=== PATIENT | female | born 1995 | race Two or more races ===

== ENCOUNTER 2024-11-19 16:47 | Emergency (ER) | payer MEDICAID, SELFPAY ==
[2024-11-19 16:59] VITALS: BP 146/87; PULSE 77; RESP 18; TEMP 36.8; O2SAT 99; BMI 27.4
--- NOTE | 2024-11-19 17:06 | XR_ITS ---
Examination: OB Transvaginal ultrasound of the pelvis, complete Technique: Transvaginal sonographic images pelvis performed using tanner scale imaging Exam date and time: Onset pelvic pain today FINDINGS: Uterus 9.1 cm endometrial stripe 1.4 cm No uterine mass or intrauterine gestation Right ovary 3.2 cm arterial flow Left ovary 3.3 cm arterial flow IMPRESSION: No intrauterine gestation or uterine Mass. No findings of ectopic Suggest continued follow-up as clinically warranted.
--- NOTE | 2024-11-19 17:07 | PD.EDRME ---
Rapid Medical Screening Exam RME Arrival date/time: 11/19/24 16:47 29-year-old female presents to the emergency department stating that she has left-sided pelvic pain patient reports she had an outpatient ultrasound today and she was told she had ectopic Chief Complaint: OB/Uterine Contractions Time Seen by Provider: 11/19/24 16:57 Vital signs: Vital Signs Temperature 98.3 F 11/19/24 16:59 Pulse Rate 77 11/19/24 16:59 Respiratory Rate 18 11/19/24 16:59 Blood Pressure 146/87 H 11/19/24 16:59 Pulse Oximetry (%) 99 11/19/24 16:59 Oxygen Delivery Method Room Air 11/19/24 16:59
[2024-11-19 17:40] LABS: Basophils # (Auto) 0.1 Thou/mm3 (0.0-0.2); Basophils % (Auto) 1 % (0-2.5); Eosinophils # (Auto) 0.2 Thou/mm3 (0.0-0.5); Eosinophils % (Auto) 2 % (0-10); Hematocrit 39.6 % (36.0-46.0); Hemoglobin 13.4 g/dL (12.0-16.0); Immature Granulocytes % (Auto) 0 % (0-0); Immature Granulocytes Auto 0.02 Thou/mm3 (0.00-0.00); Lymphocytes # (Auto) 2.7 Thou/mm3 (1.0-4.8); Lymphocytes % (Auto) 29 % (10-50); Mean Corpuscular HGB Conc 33.8 g/dl (31.0-37.0); Mean Corpuscular Hemoglobin 28.4 pg (25.0-35.0); Mean Corpuscular Volume 84 fL (80-100); Monocytes # (Auto) 0.9 Thou/mm3 (0.0-0.8); Monocytes % (Auto) 10 % (0-12); Neutrophils # (Auto) 5.5 Thou/mm3 (1.8-7.7); Neutrophils % (Auto) 59 % (37-80); Nucleated Red Blood Cell % 0 /100 WBC (0); Platelet Count 433 Thou/mm3 (140-440); RDW Standard Deviation 43.6 fL (36.4-46.3); Red Blood Count 4.72 Miln/mm3 (4.00-5.20); White Blood Count 9.3 Thou/mm3 (3.6-11.0)
[2024-11-19 17:57] LABS: Collection Type, Urine Clean Catch
[2024-11-19 18:16] LABS: Bilirubin,Urine Negative (Negative); Blood,Urine Negative (Negative); Clarity,Urine Clear (Clear/Hazy); Color,Urine Yellow (Lt Yel-Yel); Glucose, Urine Negative (Negative); Ketones,Urine Negative (Negative); Leukocyte Esterase,Urine Negative (Negative); Nitrite,Urine Negative (Negative); Protein,Urine Trace (Neg - Trace); RBC,Urine 5 /hpf (0-3); Specific Gravity,Urine 1.027 (1.001-1.035); Squamous Epithelial Cell,Urine 4 /hpf (0-5); Urobilinogen,Urine Negative mg/dL (0.0-1.0); WBC,Urine 1 /hpf (0-5)
[2024-11-19 18:17] LABS: Alanine Aminotransferase 46 U/L (10-49); Albumin, Serum 4.4 gm/dL (3.5-5.0); Albumin/Globulin Ratio 1.4 (1.2-2.2); Alkaline Phosphatase 56 U/L (46-116); Anion Gap 10 (7-16); Aspartate Amino Transferase 23 U/L (0-34); BUN/Creatinine Ratio 17 Ratio (12-20); Beta HCG,Quantitative 1021 mIU/mL (<5.0); Bilirubin,Total 0.6 mg/dL (0.3-1.2); Blood Urea Nitrogen 15 mg/dL (9-23); Calcium 8.5 mg/dL (8.3-10.6); Calcium (Corrected) 8.5 mg/dL (8.5-10.1); Carbon Dioxide 23.9 mMol/L (20.0-31.0); Chloride 105 mMol/L (98-107); Creatinine (Component) 0.9 mg/dL (0.6-1.3); Estimated Creatinine Clearance 94.2 mL/min (>60); Globulin 3.2 gm/dL (2.3-3.5); Glucose 89 mg/dL (74-106); Osmolality,Calculated 277 (275-295); Potassium 4.1 mMol/L (3.4-5.1); Sodium 139 mMol/L (136-145); Total Protein 7.6 gm/dL (5.7-8.2); eGFR > 60 See Note
[2024-11-19 21:31] VITALS: BP 134/98; BP 153/104; PULSE 86; PULSE 87; RESP 18; RESP 20; TEMP 36.9; TEMP 37.2; O2SAT 100
[2024-11-19] MEDS: MORPHINE SULF INJ 10 MG/ML VIAL 4 MG IVP (22:17)
[2024-11-19] MEDS: ONDANSETRON INJ 2 MG/ML INJ 2 ML 4 MG IV (22:18)
--- NOTE | 2024-11-19 23:25 | PD.EDPREG ---
ED OB Contraction Preg RMI/HPI General Chief complaint: OB/Uterine Contractions Stated complaint: PELVIC PAIN DUE TO ECTOPIC ; US VERIFIED Time Seen by Provider: 11/19/24 16:57 Source: patient Arrival date/time: 11/19/24 16:47 Mode of arrival: ambulatory Limitations: no limitations RME / HPI RME / HPI Narrative: 11/19/24 16:47 29-year-old female presents to the emergency department stating that she has left-sided pelvic pain patient reports she had an outpatient ultrasound today and she was told she had ectopic . DR. DAVIS?S MAIN ED EVALUATION: 29-year-old female with SHx of x 3 presenting to the emergency department via private auto c/o stabbing and cramping left-sided pelvic pain x 1 day. [facility] she [facility] and was told that she had an ectopic . Patient does not have a primary [employer]. LMP was 10/10/24. Denies any other associated symptoms or medical complaints. - PMH: HTN, high cholesterol, - PSH: x3 - Social history: - Current medications: Reviewed PCP is Georges Bobo MD MD Complaint: abdominal pain Onset (ago): day(s) (1) Consistency: intermittent Location: abdomen Severity: moderate Quality: cramping and stabbing Relieving factors: none Exacerbating factors: none Associated symptoms: nausea Vaginal discharge: none Vaginal bleeding: none : yes Number of weeks : 5 Last menstrual period: 10/10/24 Related Data : 4 Para: 3 Previous Rx's ?Medication ?Instructions ?Recorded aqpwtaai-wexdxzkaw-quienggoj 3.5 4 drop otic (ear) QID oe #10 mL 09/01/17 mg-10,000 unit/mL-1 % ear drops,susp phenazopyridine 200 mg tablet 200 mg PO TID Dysuria #6 tabs 09/01/17 (Pyridium) sulfamethoxazole 800 1 tab PO BID uti #10 tabs 09/01/17 mg-trimethoprim 160 mg tablet (Bactrim DS) acetaminophen 300 mg-codeine 30 mg 1 tab PO BID PRN pain #10 tabs 01/06/19 tablet dicyclomine 10 mg capsule 10 mg PO Q8HR #10 caps 07/27/19 meloxicam 7.5 mg tablet 7.5 mg PO QDAY #10 tabs 06/24/21 Allergies Allergy/AdvReac Type Severity Reaction Status Date / Time No Known Allergies Allergy Verified 11/19/24 16:50 Review of Systems Review of Systems Systems Reviewed: All systems reviewed, normal except as documented Gastrointestinal Gastrointestinal: Reports abdominal pain Past Medical History Past Medical History CARDIAC: Negative Congestive Heart Failure RESPIRATORY: Negative Chronic Obstructive Pulmonary Disease (COPD) GENITOURINARY: Negative Renal Disease ENDOCRINE: Negative Diabetes Mellitus Type 1 or Diabetes Mellitus Type 2 Social History SMOKING STATUS: Never smoker ED Exam General Limitations: Present no limitations General appearance: Present alert and in no apparent distress Head Head exam: Present atraumatic Eye Eye exam: Present normal appearance, PERRL and EOMI ENT ENT exam: Present normal exam, normal oropharynx and mucous membranes moist Neck Neck exam: Present normal inspection, full ROM and trachea midline Chest Chest inspection: Present normal inspection and symmetric chest wall rise Respiratory Respiratory exam: Present normal lung sounds bilaterally Cardiovascular Cardiovascular exam: Present regular rate, normal rhythm and normal heart sounds Abdominal Exam Abdominal exam: Present soft and normal bowel sounds External exam: Present normal external exam; Absent tenderness, swelling or lesions Speculum exam: Absent vaginal discharge Bimanual exam: Present normal bimanual exam; Absent cervical motion tenderness, adnexal tenderness, right adnexal tenderness or left adnexal tenderness Extremities Exam Extremities exam: Present normal inspection and full ROM Back Exam Back exam: Present normal inspection and full ROM Neurological Exam Neurological exam: Present alert, oriented X3 and CN II-XII intact Psychiatric Psychiatric exam: Present normal affect and normal mood Skin Skin exam: Present warm, dry, intact and normal color Course Quality Measures none Orders Category Date Time Status MRI Screening NOW Care 11/20/24 02:37 Completed MRI Screening NOW Care 11/20/24 05:29 Completed MRI Screening NOW Care 11/20/24 05:29 Completed MRI Screening NOW Care 11/20/24 05:30 Active MR abdomen w con Stat Exams 11/20/24 Ordered MR abdomen wo con Stat Exams 11/20/24 Ordered MR pelvis wo con Stat Exams 11/20/24 Ordered US OB transvaginal Stat Exams 11/19/24 17:06 Completed ABO/RH Type Stat Lab 11/19/24 17:23 Completed Beta HCG,Quantitative Stat Lab 11/19/24 17:18 Completed CBC Stat Lab 11/19/24 17:18 Completed Comprehensive Metabolic Panel Stat Lab 11/19/24 17:18 Completed UA [Urinalysis] Stat Lab 11/19/24 17:47 Completed Urine Culture Stat Lab 11/19/24 17:47 Received Morphine Inj Med 11/19/24 21:56 Discontinued 4 mg IVP X1 ONE Morphine Inj Med 11/20/24 05:26 Discontinued 4 mg IVP X1 ONE Morphine Inj Med 11/20/24 05:27 Discontinued 4 mg IVP X1 ONE Morphine Inj Med 11/19/24 23:40 Active 4 mg IVP X1 PRN Ondansetron Inj [Zofran Inj] Med 11/19/24 21:56 Discontinued 4 mg IV X1 ONE Ondansetron Inj [Zofran Inj] Med 11/20/24 01:04 Discontinued 4 mg IVP X1 ONE Ondansetron Inj [Zofran Inj] Med 11/20/24 05:28 Discontinued 4 mg IVP X1 ONE Vital Signs Vital signs: Vital Signs Temperature 98.3 F 11/19/24 16:59 Pulse Rate 77 11/19/24 16:59 Respiratory Rate 18 11/19/24 16:59 Blood Pressure 146/87 H 11/19/24 16:59 Pulse Oximetry (%) 99 11/19/24 16:59 Oxygen Delivery Method Room Air 11/19/24 16:59 OB/Uterine Contractions MDM Narrative MDM Narrative:: Scribe Attestation: 11/19/2024 Kayla Austin am scribing for and in the presence of Dr. Davis. Provider Notation: Although this document has been carefully reviewed, there may still be some phonetic and other typographical errors.? These errors are purely grammatical due to imperfections in the software program and should not be construed in any way to compromise the substance of the patient's medical care during this visit. 29-year-old female with SHx of x 3 presenting to the emergency department via private auto c/o stabbing and cramping abdominal-pelvic pain x 1 day. ROS: stabbing, cramping abdominal-pelvic pain Differential diagnoses include ectopic , early , atypical presentation of appendicitis, other intra-abdominal infection. UTI. 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 Since the patient stopped the pain. We discussed and she will stay here for observation to include MRI in the morning. Patient signed out to Dr. Trevino 0600. Patient data External records reviewed:: [facility] previous records and PCP records (OB - [place]) Clinical information provided by:: patient Social determinants that could affect healthcare access:: none Patient has the following chronic illnesses:: None reported How is presenting disease/condition affected by chronic disease/condition?: no chronic disease Evaluation data The following diagnostics were reviewed and interpreted by me:: lab results Lab and/or radiology exams considered but not ordered:: None Interpretation Summary: RADIOLOGY Transvaginal US: FINDINGS: Uterus 9.1 cm endometrial stripe 1.4 cm No uterine mass or intrauterine gestation Right ovary 3.2 cm arterial flow Left ovary 3.3 cm arterial flow IMPRESSION: No intrauterine gestation or uterine Mass. No findings of ectopic Suggest continued follow-up as clinically warranted. LABS Armstrong # 0.9, Immature Granulocyte # 0.02. Urine RBC 5. Beta HCG, Quant 1021. Medications / Prescriptions Medications or Prescriptions considered but not ordered:: None Medication administrations:: Medication Administration History Morphine Sulfate (Morphine Sulf Inj 10 Mg/Ml Vial) 4 mg IVP X1 PRN PRN Reason: PAIN 1-6 (mild-mod Stop: 11/24/24 23:39 Last Admin: 11/20/24 00:40 Dose: 4 mg Documented By: EE Discontinued Medications Morphine Sulfate (Morphine Sulf Inj 10 Mg/Ml Vial) 4 mg IVP X1 ONE Stop: 11/19/24 21:57 Last Admin: 11/19/24 22:17 Dose: 4 mg Documented By: CB Morphine Sulfate (Morphine Sulf Inj 10 Mg/Ml Vial) 4 mg IVP X1 ONE Stop: 11/20/24 05:27 Morphine Sulfate (Morphine Sulf Inj 10 Mg/Ml Vial) 4 mg IVP X1 ONE Stop: 11/20/24 05:28 Ondansetron HCl (Ondansetron Inj 2 Mg/Ml Inj 2 Ml) 4 mg IV X1 ONE; Protocol Stop: 11/19/24 21:57 Last Admin: 11/19/24 22:18 Dose: 4 mg Documented By: CB Ondansetron HCl (Ondansetron Inj 2 Mg/Ml Inj 2 Ml) 4 mg IVP X1 ONE; Protocol Stop: 11/20/24 01:05 Last Admin: 11/20/24 01:20 Dose: 4 mg Documented By: CB Ondansetron HCl (Ondansetron Inj 2 Mg/Ml Inj 2 Ml) 4 mg IVP X1 ONE; Protocol Stop: 11/20/24 05:29 See above if any Consultations Consultation(s) initiated? (list below): No Diagnosis OB Contractions Differential Diagnosis: other (ectopic , early , atypical presentation of appendicitis, other intra-abdominal infection. UTI.) Most likely diagnosis given after review of the tests above:: Unclear abdominal pain and patient with Admission Indicated Admission indicated?: not indicated Explain why admission is indicated or not indicated:: Pending MRI and oncoming physician's final disposition. Admission Request Was there a request for admission?: No Disposition Plan Disposition Plan: other (specify) (0600: Signed-out to Dr. Trevino. Pending MRI and final disposition.) Discharge Plan Plan Patient condition on transfer: Stable Prescriptions/Referrals Prescriptions/Med Rec: No Action sulfamethoxazole-trimethoprim [Bactrim DS] 800-160 mg tablet 1 tab PO BID Qty: 10 0RF phenazopyridine [Pyridium] 200 mg tablet 200 mg PO TID Qty: 6 0RF Rx Instructions: give with full glass water with meals agkovtkl-jsgmjrjui-NX 3.5-10,000-1 mg/mL-unit/mL-% drops,suspension 4 drop BOTH EARS QID Qty: 10 0RF Rx Instructions: . Use for 7 days. No water in ears. meloxicam 7.5 mg tablet 7.5 mg PO QDAY Qty: 10 0RF acetaminophen-codeine 300-30 mg tablet 1 tab PO BID PRN (Reason: pain) Qty: 10 0RF dicyclomine 10 mg capsule 10 mg PO Q8HR Qty: 10 0RF Referrals: Georges Bobo MD [Primary Care Provider] - In 1 week Patricia Hamm MD [Physician] - 11/20/24 12:01 am Problem List Clinical Impression: Abdominal pain, Pelvic pain with positive beta-human chorionic gonadotropin (BhCG) in female Patient/Caregiver Discharge Instructions Print Language: Syriac
--- NOTE | 2024-11-19 23:57 | PC.NURSE ---
Called camp housekeeper to come speak to patient to make a compliant a Dr. Cruz. Patient is upset and crying stating Dr. Cruz was rude and unprofessional.
[2024-11-20] MEDS: MORPHINE SULF INJ 10 MG/ML VIAL 4 MG IVP ×3 (00:40→09:12)
[2024-11-20] MEDS: ONDANSETRON INJ 2 MG/ML INJ 2 ML 4 MG IVP ×2 (01:20→05:44)
[2024-11-20 03:17] VITALS: BP 134/77; PULSE 60; RESP 16; TEMP 36.8; O2SAT 98
[2024-11-20 05:43] VITALS: BP 125/78; PULSE 87; RESP 16; TEMP 36.9; O2SAT 98
--- NOTE | 2024-11-20 07:25 | EDNOTE_ITS ---
Emergency Room Addendum Addendum Narrative: 0600: Care assumed from Dr. Cruz, the previous shift emergency physician. Past medical, surgical, social and family history reviewed. Vitals and home medications reviewed. I will assume the care of the patient at this time, pending MRI of abdomen. Please refer to the emergency department record for history and examination from initial visit.?The following addendum documentation note is intended to reflect any pending information, findings, or radiology results not included in the patient?s initial chart. Nursing notes reviewed by me. Vital signs reviewed by me. [facility] medical records reviewed by me. 1010: Notified by RN that the patient is wishing to leave against medical advice . I have personally explained to the patient that choosing to do so may result in permanent bodily harm or . I discussed a great length that without further evaluation and monitoring there may be unforeseen circumstances and deterioration causing permanent bodily harm or as a result of their ch oice. The patient is alert, oriented and competent at this time. The patient states that they are aware of the serious risks as explained, but they continue to wish to leave against medical advice. I advised the patient return in 2-days for repeat beta quant HCG and ultrasound.
[2024-11-20 08:19] VITALS: BP 103/57; PULSE 100; PULSE 88; RESP 15; O2SAT 100
[2024-11-20 09:42] VITALS: BP 134/66; PULSE 72; RESP 17; TEMP 37.1; O2SAT 99
--- NOTE | 2024-11-20 10:21 | PC.NURSE ---
PT IS REQUESTING TO LEAVE AMA. RN EXPLAINED TO PT THE RISK OF LEAVING WITH EXAMS. PT STATES THEY UNDERSTAND AND STILL WOULD LIKE TO LEAVE. PROVIDER NOTIFIED OF PTS REQUEST. PT IS A&OX4 WITH A GCS OF 15. PT AND PARTNER WERE TOLD THE RISK ASSOCIATED WITH LEAVE, BUT ARE STILL WELCOME TO COME BACK. PT SIGNED AMA FORM
--- NOTE | 2024-11-20 11:49 | PC.NURSE ---
pt called requesting doctors note. rn asked provider if they are able to get doctors note. provider told rn to print note with 3 days off
== END 2024-11-20 10:24 | disposition left against medical advice (07) ==
PROVIDERS: Nurse Practitioner Primary Care; Emergency Provider Emergency Medicine; PCP Family Medicine
DX: O26.899 Other specified pregnancy related conditions, unspecified trimester (principal); Z3A.00 Weeks of gestation of pregnancy not specified; R10.2 Pelvic and perineal pain
CPT/HCPCS: 36415; 76817; 80053; 81001; 84702; 85025; 86900; 86901; 87086; 96374; 96375; 96376; 99284; J2270; J2405

== ENCOUNTER 2024-11-22 06:31 | Emergency (ER) | payer MEDICAID, SELFPAY ==
[2024-11-22 06:34] VITALS: BMI 27.4
--- NOTE | 2024-11-22 06:37 | XR_ITS ---
Examination: OB Transvaginal ultrasound of the pelvis, complete Technique: Transvaginal sonographic images pelvis performed using tanner scale imaging Exam date and time: November 22, 2024 0810 hrs. Pelvic pain beginning 3 weeks ago Findings: Uterus 7.1 cm intrauterine gestational sac 0.54 cm corresponds to 5 weeks 2 days gestational age No pole, no cardiac activity Right ovary 2.7 cm arterial flow Left ovary 3.3 cm arterial flow Impression: Empty intrauterine gestational sac corresponding to 5 weeks 2 days gestational age, recommend short-term follow-up pelvic sonography to document viability.
[2024-11-22 06:46] VITALS: BP 127/76; PULSE 80; RESP 16; TEMP 37.3; O2SAT 99
[2024-11-22 07:19] LABS: Basophils # (Auto) 0.1 Thou/mm3 (0.0-0.2); Basophils % (Auto) 1 % (0-2.5); Eosinophils # (Auto) 0.3 Thou/mm3 (0.0-0.5); Eosinophils % (Auto) 4 % (0-10); Hematocrit 39.2 % (36.0-46.0); Hemoglobin 13.2 g/dL (12.0-16.0); Immature Granulocytes % (Auto) 0 % (0-0); Immature Granulocytes Auto 0.02 Thou/mm3 (0.00-0.00); Lymphocytes # (Auto) 2.8 Thou/mm3 (1.0-4.8); Lymphocytes % (Auto) 31 % (10-50); Mean Corpuscular HGB Conc 33.7 g/dl (31.0-37.0); Mean Corpuscular Hemoglobin 28.4 pg (25.0-35.0); Mean Corpuscular Volume 84 fL (80-100); Monocytes # (Auto) 0.9 Thou/mm3 (0.0-0.8); Monocytes % (Auto) 10 % (0-12); Neutrophils # (Auto) 4.9 Thou/mm3 (1.8-7.7); Neutrophils % (Auto) 55 % (37-80); Nucleated Red Blood Cell % 0 /100 WBC (0); Platelet Count 384 Thou/mm3 (140-440); RDW Standard Deviation 43.6 fL (36.4-46.3); Red Blood Count 4.65 Miln/mm3 (4.00-5.20)
[2024-11-22 07:49] LABS: Beta HCG,Quantitative 3433 mIU/mL (<5.0)
--- NOTE | 2024-11-22 09:21 | PD.EDFMALE ---
ED Female Urogenital RME/HPI General Chief complaint: General Adult/Misc Complain Stated complaint: REPEAT US FOR POSS ECTOPIC PRE Time Seen by Provider: 11/22/24 06:35 Arrival date/time: 11/22/24 06:31 29-year-old female presents Emergency Department today for repeat ultrasound for ectopic Limitations: no limitations Related Data Previous Rx's ?Medication ?Instructions ?Recorded pwfebnty-dxblvdkcy-hivyzvfga 3.5 4 drop otic (ear) QID oe #10 mL 09/01/17 mg-10,000 unit/mL-1 % ear drops,susp phenazopyridine 200 mg tablet 200 mg PO TID Dysuria #6 tabs 09/01/17 (Pyridium) sulfamethoxazole 800 1 tab PO BID uti #10 tabs 09/01/17 mg-trimethoprim 160 mg tablet (Bactrim DS) acetaminophen 300 mg-codeine 30 mg 1 tab PO BID PRN pain #10 tabs 01/06/19 tablet dicyclomine 10 mg capsule 10 mg PO Q8HR #10 caps 07/27/19 meloxicam 7.5 mg tablet 7.5 mg PO QDAY #10 tabs 06/24/21 Allergies Allergy/AdvReac Type Severity Reaction Status Date / Time No Known Allergies Allergy Verified 11/22/24 06:43 Review of Systems Review of Systems Systems Reviewed: All systems reviewed, normal except as documented Constitutional Constitutional: Reports system reviewed and no additional complaints, except as documented, Denies fever(s) and Denies headache(s) Eyes Eyes: Reports system reviewed and no additional complaints, except as documented and Denies blurry vision ENT Ears, Nose, Mouth, and Throat: Reports system reviewed and no additional complaints, except as documented, Denies headache(s), Denies nasal congestion and Denies nasal discharge Cardiovascular Cardiovascular: Reports system reviewed and no additional complaints, except as documented, Denies chest pain and Denies dyspnea Respiratory Respiratory: Reports system reviewed and no additional complaints, except as documented, Denies chest congestion, Denies cough and Denies dyspnea Gastrointestinal Gastrointestinal: Reports system reviewed and no additional complaints, except as documented and Denies abdominal pain Genitourinary Genitourinary: Reports system reviewed and no additional complaints, except as documented and Reports abnormal vaginal bleeding Integumentary/Breasts Skin/Breast: Reports system reviewed and no additional complaints, except as documented and Denies rash Neurologic Neurologic: Reports system reviewed and no additional complaints, except as documented, Reports as per HPI and Denies headache(s) Past Medical History Past Medical History CARDIAC: Negative Congestive Heart Failure RESPIRATORY: Negative Chronic Obstructive Pulmonary Disease (COPD) GENITOURINARY: Negative Renal Disease ENDOCRINE: Negative Diabetes Mellitus Type 1 or Diabetes Mellitus Type 2 Social History SMOKING STATUS: Never smoker ED Exam General Limitations: Present no limitations General appearance: Present alert and in no apparent distress Head Head exam: Present atraumatic, normocephalic and normal inspection Eye Eye exam: Present normal appearance, PERRL and EOMI; Absent conjunctival injection ENT ENT exam: Present normal exam, normal oropharynx and mucous membranes moist Neck Neck exam: Present normal inspection, full ROM and trachea midline Chest Chest inspection: Present normal inspection and symmetric chest wall rise Respiratory Respiratory exam: Present normal lung sounds bilaterally; Absent respiratory distress Cardiovascular Cardiovascular exam: Present regular rate, normal rhythm and normal heart sounds Abdominal Exam Abdominal exam: Present soft and normal bowel sounds; Absent distention, tenderness, guarding, rebound or rigidity Extremities Exam Extremities exam: Present normal inspection and full ROM Back Exam Back exam: Present normal inspection and full ROM Neurological Exam Neurological exam: Present alert, oriented X3 and CN II-XII intact Psychiatric Psychiatric exam: Present normal affect and normal mood Skin Skin exam: Present warm, dry, intact and normal color Course Quality Measures none Orders Category Date Time Status US OB transvaginal Stat Exams 11/22/24 06:37 Completed Beta HCG,Quantitative Stat Lab 11/22/24 06:50 Completed CBC Stat Lab 11/22/24 06:50 Completed Vital Signs Vital signs: Vital Signs Temperature 99.1 F 11/22/24 06:46 Pulse Rate 80 11/22/24 06:46 Respiratory Rate 16 11/22/24 06:46 Blood Pressure 127/76 11/22/24 06:46 Pulse Oximetry (%) 99 11/22/24 06:46 Oxygen Delivery Method Room Air 11/22/24 06:46 O2 saturation 99% room air within the limits Urogenital - Female MDM Narrative MDM Narrative:: 29-year-old female presents Emergency Department today for repeat ultrasound for ectopic On exam patient well-appearing patient does not appear ill or toxic no acute distress Lab work and imaging obtained no acute emergent findings noted patient appears to have viable at this time Patient discharged home in no distress to follow-up with primary care doctor in the next 24 to 48 hours and for any worsening symptoms to return to the ER immediately Patient data External records reviewed:: [facility] previous records Clinical information provided by:: patient Social determinants that could affect healthcare access:: none Patient has the following chronic illnesses:: None How is presenting disease/condition affected by chronic disease/condition?: no chronic disease Evaluation data The following diagnostics were reviewed and interpreted by me:: lab results and radiology exam(s) Lab and/or radiology exams considered but not ordered:: Labs radiology obtained Interpretation Summary: Reviewed by me Medications / Prescriptions Medications or Prescriptions considered but not ordered:: Given no meds Medication administrations:: No meds given Consultations Consultation(s) initiated? (list below): No Diagnosis Urogenital Female Differential Diagnosis: urinary tract infection and cystitis Most likely diagnosis given after review of the tests above:: Threatened Admission Indicated Admission indicated?: not indicated Admission Request Was there a request for admission?: No Disposition Plan Disposition Plan: Discharge Discharge Attestation Discharge Attestation: The patient and all family members were given an opportunity to ask questions and understood the discharge instructions. Discharge instructions specifically effects, indications for sooner follow up or return to the emergency department, and the expected course of current diagnosis. Patient condition: Stable Discharge Plan Plan Patient Disposition: HOME (Self Care) Discharge Disposition comment: Stable Prescriptions/Referrals Prescriptions/Med Rec: No Action sulfamethoxazole-trimethoprim [Bactrim DS] 800-160 mg tablet 1 tab PO BID Qty: 10 0RF phenazopyridine [Pyridium] 200 mg tablet 200 mg PO TID Qty: 6 0RF Rx Instructions: give with full glass water with meals [id number]-qgpenvrmt-CK 3.5-10,000-1 mg/mL-unit/mL-% drops,suspension 4 drop BOTH EARS QID Qty: 10 0RF Rx Instructions: . Use for 7 days. No water in ears. meloxicam 7.5 mg tablet 7.5 mg PO QDAY Qty: 10 0RF acetaminophen-codeine 300-30 mg tablet 1 tab PO BID PRN (Reason: pain) Qty: 10 0RF dicyclomine 10 mg capsule 10 mg PO Q8HR Qty: 10 0RF Referrals: Isaiah Salmon MD [Physician] - 11/25/24 Problem List Clinical Impression: , threatened Patient/Caregiver Discharge Instructions Education Materials: ED Possible Miscarriage ... Additional Instructions: Please have repeat lab work and ultrasound in 1 week for worsening symptoms or concerns return immediately Please follow-up in the office of Dr. Salmon inform the office that they were seen in the emergency department and you are establishing care as a new patient Print Language: Czech Stand Alone Forms: Zoila Award Info., Patient Portal Info Letter PA/SCRAP DROP CRANE OPERATOR Supervising Physician PA/SCRAP DROP CRANE OPERATOR Supervising Physician: Dr. shaw
== END 2024-11-22 10:44 | disposition home or self-care (01) ==
PROVIDERS: Nurse Practitioner Primary Care; Emergency Provider Family Medicine; PCP Nurse Practitioner Women's Health
DX: O20.0 Threatened abortion (principal); Z3A.00 Weeks of gestation of pregnancy not specified
CPT/HCPCS: 36415; 76817; 84702; 85025; 99284

== ENCOUNTER 2024-11-25 09:28 | Outpatient (AMB) | payer MEDICAID, SELFPAY ==
[2024-11-25 10:10] VITALS: BP 154/95; PULSE 80; RESP 18; TEMP 36.2; O2SAT 98; BMI 25.2
--- NOTE | 2024-11-25 10:10 | AMB.GYNCLNOT ---
Vital Signs 11/25/24 10:10 Height 1.65 m Height Method Stated Weight 68.663 kg Weight Measurement Method Standing Scale BMI 25.2 BP 154/95 H Blood Pressure Source Automatic Cuff Blood Pressure Location Left Upper Arm Position Sitting Respiration 18 Pulse 80 Pulse Source Monitor Temp 97.2 F Temp Source Oral Pulse Oximetry (%) 98 Oxygen Delivery Method Room Air Allergies/Home Meds Allergies & Medications Allergies No Known Allergies Allergy (Verified 11/25/24 10:12) Medication Reconciliation icjqnhse-lvihqwhbt-vcoppbgzi 3.5 mg-10,000 unit/mL-1 % ear drops,susp 4 drop otic (ear) QID oe #10 mL 09/01/17 [Rx Confirmed 11/25/24] phenazopyridine 200 mg tablet (Pyridium) 200 mg PO TID Dysuria #6 tabs 09/01/17 [Rx Confirmed 11/25/24] sulfamethoxazole 800 mg-trimethoprim 160 mg tablet (Bactrim DS) 1 tab PO BID uti #10 tabs 09/01/17 [Rx Confirmed 11/25/24] acetaminophen 300 mg-codeine 30 mg tablet 1 tab PO BID PRN pain #10 tabs 01/06/19 [Rx Confirmed 11/25/24] dicyclomine 10 mg capsule 10 mg PO Q8HR #10 caps 07/27/19 [Rx Confirmed 11/25/24] meloxicam 7.5 mg tablet 7.5 mg PO QDAY #10 tabs 06/24/21 [Rx Confirmed 11/25/24] Intake Visit Data Collection New Patient or Established: Established Patient (seen at [facility] within 3 years) Reason for Visit:: HOSP FOLLOW UP Seen by Clinical Staff ONLY (RN/MA): No Cardiac Catheterization Technologist Required: No Do You Feel Safe at Home: Yes Authorities Contacted: N/A PCP or OBGYN visit in last 3 months: Yes Date of Last PCP or OBGYN visit: 11/22/24 Hx Now: No Are you currently on any form of Control: No Last menstrual period: 10/10/24 Pain Present Currently: No Pain Scale Used: De La Cruz-Burrell/Numerical Pain scale:: 0 Smoking Status Smoking Status: Never smoker 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 1. Little interest or pleasure in doing things: not at all 2. Feeling down, depressed, or hopeless: not at all Total score: 0 PHQ-9 3. Trouble falling or staying asleep, or sleeping too much: Not at all 4. Feeling tired or having little energy: Not at all 5. Poor appetite or overeating: Not at all 6. Feeling bad about yourself - or that you are a failure or have let yourself or your family down: Not at all 7. Trouble concentrating on things, such as reading the newspaper or watching television: Not at all 8. Moving or speaking so slowly that other people could have noticed? - Or the opposite - being so fidgety or restless that you have been moving around a lot more than usual: not at all 9. Thoughts that you would be better off or of hurting yourself in some way: Not at all Total score: 0 If you checked off any problems, how difficult have these problems made it for you to do your work, take care of things at home, or get along with other people?: not difficult at all Source: Developed by Drs. Philip Butler, Amber Montero, Donnell Gallo and colleagues, with an educational khurram from [facility]. Depression screen completed yes Social History Living Situation History Lives With: Family Housing: House Tobacco History Smoking Status: Never smoker Second Hand Smoke Exposure: No Alcohol History Alcohol Intake: Never Domestic Abuse History Do You Feel Safe at Home: Yes History of Present Illness HPI Narrative Patient is a 29-year-old female who initially presented to the ER on 11/19/2024 with vaginal bleeding on the first day of her . Ultrasound at that time showed no intrauterine gestation or mass, and no findings of ectopic . She was recommended to follow up as an outpatient. Patient returned to the ER on 11/22/2024 for follow-up. Ultrasound revealed a uterus measuring 7.1 cm with an intrauterine gestational sac corresponding to 5 weeks and 2 days gestation. No pole or cardiac activity was observed. Patient expresses that the was unexpected and states she does not want to continue with the , citing that she is not prepared for this at this time. Patient reports positive for vaginal bleeding. She expresses desire to terminate current . Exam General General Appearance: alert, in no apparent distress and healthy appearing Head Head exam: atraumatic Neck Neck exam: Present normal inspection and trachea midline Chest Chest inspection: Present normal inspection and symmetric chest wall rise External exam: Present normal external exam; Absent tenderness Neuro Neurological exam: Present oriented X3 Psych Psychiatric exam: Present normal affect and normal mood Results Objective Laboratory: - Serum hCG (11/19/2024): 1020 - Ultrasound (11/19/2024): No intrauterine gestation or mass, no findings of ectopic - Serum hCG (11/22/2024): 3433 Imaging: - Ultrasound (11/22/2024): Uterus measuring 7.1 cm Intrauterine gestational sac measuring 0.54 cm, corresponding to 5 weeks and 2 days gestation No pole or cardiac activity seen Office Procedures OB Clinic LOC & Office Proc's Nursing/Assessment Patient Status: Established Patient OB Clinic Nursing Assessment: BP Monitoring, Medication Reconciliation, Update PMH in EMR and Vital Signs OB Clinic Coordination of Care: Education Complex Pt/Fam, Consent,records obtained, informed consent, Results/Orders obtained and Staff clarify orders Established Patient Charge Established Patient Point Assignment: 85 Established Patient Point Charge: EP Level 3 (80-115) Assessment & Plan Diagnosis / Problem List (1) , threatened: Status: Acute (2) Hemorrhage in early , unspecified: Status: Acute Plan Early Intrauterine : - Patient had two ER visits (11/19/2024 and 11/22/2024) for vaginal bleeding and early concerns. - Initial ultrasound (11/19) showed no intrauterine gestation or mass, serum hCG 1020. - Follow-up (11/22) revealed intrauterine gestational sac measuring 0.54 cm, corresponding to 5 weeks 2 days gestation. No pole or cardiac activity. Serum hCG increased to 3433. - Informed patient of normal progression based on hCG levels and ultrasound findings. - Explained it is too early to detect heartbeat at this stage. - Patient expressed desire for termination. - Informed patient our facility cannot perform or refer for termination. - Advised patient to self[facility]refer to [facility] for further options. - Provided printed information on [facility] locations in [facility].
== END 2024-11-25 10:08 | disposition home or self-care (01) ==
LOC: HODSOBC 09:28
PROVIDERS: PCP Nurse Practitioner Women's Health; Referring Provider Nurse Practitioner Women's Health; Supervising Provider Obstetrics & Gynecology; Visit Provider Obstetrics & Gynecology
DX: O20.0 Threatened abortion (principal); Z3A.01 Less than 8 weeks gestation of pregnancy
CPT/HCPCS: 99213; G0463

== ENCOUNTER 2025-05-31 10:21 | Emergency (ER) | payer MEDICAID, SELFPAY ==
[2025-05-31 10:22] VITALS: BMI 28.8
[2025-05-31 10:48] VITALS: BP 138/87; PULSE 95; RESP 18; TEMP 37; O2SAT 99
--- NOTE | 2025-05-31 11:14 | XR_ITS ---
Examination: OB Transvaginal ultrasound of the pelvis, complete Technique: Transvaginal sonographic images pelvis performed using tanner scale imaging Exam date and time: May 31, 2025, 1122 hours INDICATIONS: Back pain pelvic pain this week, empty intrauterine gestational sac on ultrasound November 22, 2024 FINDINGS: Uterus 8.9 cm endometrial stripe 1.8 cm Cyst versus gestational sac of the lower uterine segment 8 x 9 mm, no pole, no cardiac activity Ovaries obscured by bowel gas IMPRESSION: Recommend short-term follow-up transvaginal pelvic sonography to differentiate cyst versus intrauterine gestational sac abnormally low in position in the uterus, no pole, no cardiac activity.
--- NOTE | 2025-05-31 11:15 | PD.EDRME ---
Rapid Medical Screening Exam E Arrival date/time: 05/31/25 10:21 This is a 30-year-old female that comes into the emergency room with complaints of vaginal bleeding lower abdominal cramping and lower back pain. Patient states that she was seen by provider in [place] on May 27 and was told that her was possibly ectopic. Patient states she was also seen by different doctor in [place] who told her she was having a miscarriage. Patient is very confused if she is . Patient still having vaginal bleeding, abdominal cramping and lower back pain. I have greeted and performed a focused initial assessment of this patient. Initial appropriate labs ordered at this time. A comprehensive ED assessment and evaluation of the patient and analysis of all test and completion of medical decision making process will be conducted by additional ED provider. Chief Complaint: Vaginal Bleeding Time Seen by Provider: 05/31/25 10:41 Vital signs: Vital Signs Temperature 98.6 F 05/31/25 10:48 Pulse Rate 95 05/31/25 10:48 Respiratory Rate 18 05/31/25 10:48 Blood Pressure 138/87 H 05/31/25 10:48 Pulse Oximetry (%) 99 05/31/25 10:48 Oxygen Delivery Method Room Air 05/31/25 10:48 Exam: Breathing even and unlabored, alert and oriented Clinical Impression: Abdominal pain
[2025-05-31 11:20] LABS: Collection Type, Urine Voided
[2025-05-31 11:29] LABS: Bilirubin,Urine Negative (Negative); Blood,Urine 3+ (Negative); Clarity,Urine Turbid (Clear/Hazy); Color,Urine Lt-Yellow (Lt Yel-Yel); Culture Indicated,Urine Not Indicated; Glucose, Urine Negative (Negative); Ketones,Urine Negative (Negative); Leukocyte Esterase,Urine Positive (Negative); Nitrite,Urine Negative (Negative); PH,Urine 6.5 (5.0-7.0); Protein,Urine Trace (Neg - Trace); RBC,Urine 249 /hpf (0-3); Specific Gravity,Urine 1.025 (1.001-1.035); Squamous Epithelial Cell,Urine 8 /hpf (0-5); Urobilinogen,Urine Negative mg/dL (0.0-1.0); WBC,Urine 3 /hpf (0-5)
--- NOTE | 2025-05-31 12:05 | EDNOTE_ITS ---
ED General RME/HPI General Chief complaint: Vaginal Bleeding Stated complaint: VAGINAL BLEEDING X3 DAYS, LOWER ABD PAIN Time Seen by Provider: 05/31/25 10:41 Arrival date/time: 05/31/25 10:21 CC: Low abdominal cramping, with low back pain in addition to vaginal bleeding with clots. HPI onset 4 days ago progressive persistence at this time. Patient denies nausea vomiting headache shortness of breath or difficulty breathing. Patient is a at estimated 9 weeks. RME / HPI RME / HPI narrative: 05/31/25 10:21 This is a 30-year-old female that comes into the emergency room with complaints of vaginal bleeding lower abdominal cramping and lower back pain. Patient states that she was seen by provider in [place] on May 27 and was told that her was possibly ectopic. Patient states she was also seen by different doctor in [place] who told her she was having a miscarriage. Patient is very confused if she is . Patient still having vaginal bleeding, abdominal cramping and lower back pain. I have greeted and performed a focused initial assessment of this patient. Initial appropriate labs ordered at this time. A comprehensive ED assessment and evaluation of the patient and analysis of all test and completion of medical decision making process will be conducted by additional ED provider. Exam: Breathing even and unlabored, alert and oriented Impression: Abdominal pain Related Data Previous Rx's ?Medication ?Instructions ?Recorded tdovbyqu-seoppcwly-xlolgzazn 3.5 4 drop otic (ear) QID oe #10 mL 09/01/17 mg-10,000 unit/mL-1 % ear drops,susp phenazopyridine 200 mg tablet 200 mg PO TID Dysuria #6 tabs 09/01/17 (Pyridium) sulfamethoxazole 800 1 tab PO BID uti #10 tabs mg-trimethoprim 160 mg tablet (Bactrim DS) acetaminophen 300 mg-codeine 30 mg 1 tab PO BID PRN pa in #10 tabs 01/06/19 tablet dicyclomine 10 mg capsule 10 mg PO Q8HR #10 caps 07/27 meloxicam 7.5 mg tablet 7.5 mg PO QDAY #10 tabs 12/2 10/20 Allergies Allergy/AdvReac Type Severity Reaction Status Date / Time No Known Allergies Allergy Verified 05/31/25 10:25 Review of Systems Review of Systems Narrative Review of Systems: GEN: No fever, no chills, no weight loss EYES: No discharge, no visual changes, no pain HEENT: No ear pain, no congestion, no sore throat PULM: No shortness of breath, no cough, no congestion CV: No chest pain, no dyspnea on exertion, no palpitations GI: No nausea, no vomiting, no diarrhea, no pain, no constipation : No frequency, no urgency, no dysuria MUSC/SKEL: No joint pain, no back pain SKIN: No rash PSYCH: No hallucinations, no depression HEME/LYMPH: No easy bleeding or bruising tendencies NEURO: No weakness, no headache Past Medical History Past Medical History CARDIAC: Negative Congestive Heart Failure RESPIRATORY: Negative Chronic Obstructive Pulmonary Disease (COPD) GENITOURINARY: Negative Renal Disease ENDOCRINE: Negative Diabetes Mellitus Type 1 or Diabetes Mellitus Type 2 Social History SMOKING STATUS: Never smoker SECOND HAND EXPOSURE: No ED Exam Narrative Physical exam: [General: Not in any acute distress Head normocephalic HEENT: Within acceptable limits Neck is supple nontender Chest equal chest rise nontender to palpation Respiratory: Clear to auscultation no wheezes crackles or rubs CV: Rate rhythm is regular no murmurs rubs or clicks Abdomen is soft nontender no masses positive bowel sounds all 4 quadrants Back: No CVA tenderness no spinous process tenderness from cervical spine thoracic and lumbar spine Skin: Intact no petechiae rash induration ulceration or crepitus Extremities: Moving all extremity against resistance cap refill less than 2 seconds neurosensory intact Neuro: Awake alert oriented x3 Glascow coma 15 no focal deficits] Course Course Course Narrative: Ultrasound shows that there is a cyst versus gestational sac the patient was advised as such and will return in 5 to 7 days for repeat. Quality Measures none Orders Category Date Time Status US OB transvaginal Stat Exams 05/31/25 11:14 Completed ABO/RH Type - Stat Lab 05/31/25 11:53 Received Beta HCG,Quantitative Stat Lab 05/31/25 11:53 Completed CBC Stat Lab 05/31/25 11:53 Completed Comprehensive Metabolic Panel Stat Lab 05/31/25 11:53 Completed Urinalysis, C/S if Indicated Stat Lab 05/31/25 11:15 Completed Vital Signs Vital signs: Vital Signs Temperature 98.6 F 05/31/25 10:48 Pulse Rate 95 05/31/25 10:48 Respiratory Rate 18 05/31/25 10:48 Blood Pressure 138/87 H 05/31/25 10:48 Pulse Oximetry (%) 99 05/31/25 10:48 Oxygen Delivery Method Room Air 05/31/25 10:48 Discharge Plan Plan Patient Disposition: HOME (Self Care) Patient condition on transfer: Stable Prescriptions/Referrals Prescriptions/Med Rec: No Action sulfamethoxazole-trimethoprim [Bactrim DS] 800-160 mg tablet 1 tab PO BID Qty: 10 0RF phenazopyridine [Pyridium] 200 mg tablet 200 mg PO TID Qty: 6 0RF Rx Instructions: give with full glass water with meals hqhxbwnw-mwfbgdjcz-IM 3.5-10,000-1 mg/mL-unit/mL-% drops,suspension 4 drop BOTH EARS QID Qty: 10 0RF Rx Instructions: . Use for 7 days. No water in ears. meloxicam 7.5 mg tablet 7.5 mg PO QDAY Qty: 10 0RF acetaminophen-codeine 300-30 mg tablet 1 tab PO BID PRN (Reason: pain) Qty: 10 0RF dicyclomine 10 mg capsule 10 mg PO Q8HR Qty: 10 0RF Referrals: Georges Bobo MD [Primary Care Provider, Family Practice] - In 1 week Problem List Clinical Impression: Threatened miscarriage Patient/Caregiver Discharge Instructions Education Materials: ED Possible Miscarriage ... 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 Leukocyte esterase positive nitrite -8 squamous epithelia 3 whites no bacteria. Imaging Imaging interpretation: interpreted by [facility]n Imaging Interpretation(s): Cyst versus get gestational sac as interpreted by radiology.
[2025-05-31 12:12] VITALS: BP 127/67; PULSE 80; RESP 17; TEMP 36.9; O2SAT 98
[2025-05-31 12:12] LABS: Basophils # (Auto) 0.0 Thou/mm3 (0.0-0.2); Basophils % (Auto) 1 % (0-2.5); Eosinophils # (Auto) 0.2 Thou/mm3 (0.0-0.5); Eosinophils % (Auto) 3 % (0-10); Hematocrit 36.5 % (36.0-46.0); Hemoglobin 11.4 g/dL (12.0-16.0); Immature Granulocytes Auto 0.01 Thou/mm3 (0.00-0.00); Lymphocytes # (Auto) 2.0 Thou/mm3 (1.0-4.8); Lymphocytes % (Auto) 27 % (10-50); Mean Corpuscular HGB Conc 31.2 g/dl (31.0-37.0); Mean Corpuscular Hemoglobin 24.4 pg (25.0-35.0); Mean Corpuscular Volume 78 fL (80-100); Monocytes # (Auto) 0.8 Thou/mm3 (0.0-0.8); Monocytes % (Auto) 11 % (0-12); Neutrophils # (Auto) 4.2 Thou/mm3 (1.8-7.7); Neutrophils % (Auto) 58 % (37-80); Nucleated Red Blood Cell # 0.00 Thou/mm3 (0.00-0.00); Nucleated Red Blood Cell % 0 /100 WBC (0); Platelet Count 402 Thou/mm3 (140-440); RDW Standard Deviation 57.5 fL (36.4-46.3); Red Blood Count 4.68 Miln/mm3 (4.00-5.20); White Blood Count 7.2 Thou/mm3 (3.6-11.0)
[2025-05-31 12:52] LABS: Alanine Aminotransferase 17 U/L (10-49); Albumin, Serum 4.3 gm/dL (3.5-5.0); Albumin/Globulin Ratio 1.3 (1.2-2.2); Alkaline Phosphatase 44 U/L (46-116); Anion Gap 9 (7-16); Aspartate Amino Transferase 23 U/L (0-34); BUN/Creatinine Ratio 11 Ratio (12-20); Beta HCG,Quantitative 5695 mIU/mL (<5.0); Bilirubin,Total 0.2 mg/dL (0.3-1.2); Blood Urea Nitrogen 8 mg/dL (9-23); Calcium 8.8 mg/dL (8.3-10.6); Calcium (Corrected) 8.8 mg/dL (8.5-10.1); Carbon Dioxide 26.1 mMol/L (20.0-31.0); Chloride 107 mMol/L (98-107); Creatinine (Component) 0.7 mg/dL (0.6-1.3); Estimated Creatinine Clearance 118.5 mL/min (>60); Globulin 3.2 gm/dL (2.3-3.5); Glucose 80 mg/dL (74-106); Osmolality,Calculated 280 (275-295); Potassium 4.0 mMol/L (3.4-5.1); Sodium 142 mMol/L (136-145); Total Protein 7.5 gm/dL (5.7-8.2); eGFR > 60 See Note
== END 2025-05-31 13:25 | disposition home or self-care (01) ==
PROVIDERS: Nurse Practitioner Family; Emergency Provider Emergency Medicine; PCP Family Medicine
DX: O20.0 Threatened abortion (principal); Z3A.09 9 weeks gestation of pregnancy
CPT/HCPCS: 36415; 76817; 80053; 81001; 84702; 85025; 86900; 86901; 99283